=== PATIENT | female | born 1950 | race Caucasian/White ===

== ENCOUNTER → 2020-04-29 14:37 | Outpatient (BNVA) | payer OTHER, SELFPAY | PROVIDERS: Family Provider Family Medicine; Referring Provider Dermatology; Visit Provider Dermatology | DX: L65.8 Other specified nonscarring hair loss (principal); Q82.8 Other specified congenital malformations of skin; L65.9 Nonscarring hair loss, unspecified | CPT/HCPCS: 17110; 99203 ==

== ENCOUNTER → 2020-04-30 17:00 | Outpatient (BNVA) | payer OTHER, SELFPAY | PROVIDERS: Family Provider Family Medicine; PCP Family Medicine; Referring Provider Dermatology; Visit Provider Dermatology | DX: L65.9 Nonscarring hair loss, unspecified (principal) | CPT/HCPCS: 36415; 84439; 84443 ==

== ENCOUNTER 2020-07-13 15:47 | Outpatient (CLI) | payer OTHER, SELFPAY ==
--- NOTE | 2020-07-13 15:53 | XR_ITS ---
WS: [id number] SCREENING DEXA SCAN [employer] CLINICAL INFORMATION: POST MENOPAUSAL COMPARISON: None. FINDINGS: The L1-L4 bone mineral density measures 1.342 g/cm2. This corresponds to a T score score of 1.4 and Z score of 1.9. Left femoral neck bone mineral density measures 0.877 g/cm2. This corresponds to a T score of -1.0 an d Z score of -0.3. Right femoral neck bone mineral density measures 0.874 g/cm2. This corresponds to a T score -1.1of an d Z score of -0.3. Mean femoral neck bone mineral density measures 0.876 g/cm2. This corresponds to a T score of -1.0 an d Z score of -0.3. XR/XR DEXA axial skeleton* [id number] IMPRESSION: Osteopenia in the femoral necks. Normal bone mineralization in the lumbar spine . Patient's FRAX calculated 10 year probability for major osteoporotic fracture i s 8.0 % and osteoporotic hip fracture is 0.8%.
== END 2020-07-13 15:48 | disposition home or self-care (01) ==
LOC: RADWPI 15:52
PROVIDERS: PCP Family Medicine; Visit Provider Family Medicine
DX: Z78.0 Asymptomatic menopausal state (principal); M85.88 Other specified disorders of bone density and structure, other site
CPT/HCPCS: 77080

== ENCOUNTER → 2020-07-21 16:28 | Outpatient (BNVA) | payer OTHER, SELFPAY | PROVIDERS: PCP Family Medicine; Visit Provider Surgery | DX: Z20.828 Contact with and (suspected) exposure to other viral communicable diseases (principal) | CPT/HCPCS: 87635 ==

== ENCOUNTER 2020-07-26 06:58 | Day surgery (SDC) | payer OTHER, SELFPAY ==
[2020-07-22 13:48] VITALS: BMI 33.4
[2020-07-26 07:14] VITALS: BP 168/106; PULSE 71; RESP 18; TEMP 36.4; O2SAT 97
--- NOTE | 2020-07-26 07:25 | W.PM.OPSUD ---
Surgery/Procedure H&P Update DATE OF PROCEDURE: July 26, 2020 DATE H&P PERFORMED: 07/19/20 H&P UPDATE INFORMATION: I have reviewed H&P completed within last 30 days, I have examined patient prior to procedure and No changes to prior documentation PLANNED PROCEDURE: Operation Date: 07/26/20 08:00 Proposed Procedures p EGD [id number] D64.9(Not Applicable) - Jered Braswell MD s Colonoscopy(Not Applicable) - Jered Braswell MD
[2020-07-26] MEDS: sodium chloride 0.9% 1,000 ML 100 ML IV (07:30)
[2020-07-26 07:33] LABS: Glucose Point of Care 95 mg/dL (70-110)
--- NOTE | 2020-07-26 07:52 | ECG_ITS ---
[facility] Test Date: 2020-07-26 Pat Name: Padmini David Department: Room: Gender: Female [employer] Pre[employer]er: : 1950 Requested By: Yuri Shell Order Number: [id number] Keon MD: YOLANDA DRAKE Measurements Intervals [place] Rate: 66 P: NH: QRS: -28 QRSD: 97 T: -5 QT: 367 QTc: 387 Interpretive Statements ATRIAL FIBRILLATION POSSIBLE ANTERIOR MYOCARDIAL INFARCTION [30 ms Q WAVE IN V3/V4, OR R < 0.2 mV IN V4], PROBABLY OLD ABNORMAL RHYTHM ECG Compared to ECG 07/21/2015 11:39:45 Sinus rhythm no longer present Left-axis deviation no longer present Myocardial infarct finding still present Electronically Signed On 07-26-2020 18:38:49 EDUCATIONAL ADVISOR by YOLANDA DRAKE [id number]
--- NOTE | 2020-07-26 08:00 | ANES.PREANE2 ---
Pre-Anesthetic Assessment Pre-Anesthetic Assessment: Height/Weight: Height 1.73 m Weight 99.79 kg Temp Pulse Resp BP Pulse Ox 97.5 F L 71 18 168/106 97 07/26/20 07:14 07/26/20 07:14 07/26/20 07:14 07/26/20 07:14 07/26/20 07:14 Proposed Procedure: Operation Date: 07/26/20 08:00 Proposed Procedures p EGD [id number] D64.9(Not Applicable) - Jered Braswell MD s Colonoscopy(Not Applicable) - Jered Braswell MD Was Beta Phuong taken within 24 hours: Yes Last intake: Intake Last Liquid Date 07/25/20 Last Liquid Time 20:00 Last Solid Date 07/24/20 Social: Social History: No alcohol and No tobacco Exam: Pre-Anes Outpt Exam: alert, oriented x 3, clear to auscultation bilaterally and regular rate & rhythm Airway: Submandibular: WNL Cervical ROM: WNL MP: 2 Dentition: Full History/ROS: No significant history except as noted and No significant complaints Pulmonary: Pulmonary: None reported CV/HEM: CV/HEM: Afib and HTN : : None reported Hepatic: Hepatic: None reported GI: GI: None reported Neuropsych: Neuropsych: CVA Anesthetic Plan: Anesthesia: MAC Risk of > 500 ml blood loss (7ml/kg in children): No Meds/Allergies Current Medications: Current Medications Generic Name Dose Route Start Last Admin Trade Name Freq PRN Reason Stop Dose Admin Sodium Chloride 1,000 mls @ 100 m ls/hr 07/26/20 07:30 07/26/20 07:30 Sodium Chloride 0.9% IV 07/27/20 07:29 100 mls/hr .Q10H MAKSIM Administration PFSH Anesthesia PFSH: Medical History Diabetes Hypertension Stroke Surgical History History of appendectomy History of back surgery History of right knee joint replacement History of tonsillectomy and adenoidectomy S/P IVC filter and removal Family History Father Diabetes Mother Hypertension Stroke Denies family history of CAD (coronary artery disease) Anesthesia complication Bleeding disorder Cancer Social History Smoking and tobacco status: never smoked Alcohol intake: never Household members: spouse Marital status: Current occupational status: employed History of recent travel: No Data Anesthesia Other Labs: Laboratory Results - last 48 hr 07/26/20 07:30 POC Glucose 95 Cardiac Studies: No Data to Display
[2020-07-26 09:08] VITALS: BP 158/106; PULSE 75; RESP 18; TEMP 36.5; O2SAT 97
--- NOTE | 2020-07-26 15:47 | ANE.PACU2 ---
Inpatient post-anesthesia follow up: Airway intact: Yes Vital signs: Temperature 97.7 F Pulse Rate 75 Respiratory Rate 18 Blood Pressure 158/106 Pulse Oximetry 97 Oxygen Delivery Me thod Room Air Oxygen Flow Rate Fraction of Inspir ed Oxygen Hydration adequate: Yes Nausea and vomiting: No Pain level: 2 Mental status: Baseline
== END 2020-07-26 09:39 | disposition home or self-care (01) ==
PROVIDERS: PCP Family Medicine; Visit Provider Surgery
PROC: 0DJ08ZZ Inspection of Upper Intestinal Tract, Via Natural or Artificial Opening Endoscopic (ICD-10-PCS; CPT 43235; principal; 2020-07-26 08:00)
PROC: 0DJD8ZZ Inspection of Lower Intestinal Tract, Via Natural or Artificial Opening Endoscopic (ICD-10-PCS; CPT 45378; 2020-07-26 08:00)
DX: K92.1 Melena (principal); D50.9 Iron deficiency anemia, unspecified; E11.9 Type 2 diabetes mellitus without complications; Z79.84 Long term (current) use of oral hypoglycemic drugs; I10 Essential (primary) hypertension; Z86.73 Personal history of transient ischemic attack (TIA), and cerebral infarction without residual deficits; Z82.49 Family history of ischemic heart disease and other diseases of the circulatory system; Z83.3 Family history of diabetes mellitus; Z82.3 Family history of stroke; Z79.01 Long term (current) use of anticoagulants; K29.70 Gastritis, unspecified, without bleeding; D12.4 Benign neoplasm of descending colon; D12.5 Benign neoplasm of sigmoid colon; I48.91 Unspecified atrial fibrillation
CPT/HCPCS: 12345; 36416; 43235; 45380; 45385; 82962; 88305; 93005; J2704; J7030

== ENCOUNTER 2020-08-11 11:33 | Outpatient (CLI) | payer OTHER, SELFPAY ==
--- NOTE | 2020-08-11 11:40 | MM_ITS ---
WS: [id number] SCREENING DIGITAL MAMMOGRAM WITH CAD HISTORY: SCREENING COMPARISON: 06/02/2019 Bilateral CC and MLO views submitted. Computer aided detection analyzed. Breast composition: There are scattered areas of fibroglandular density. No suspicious masses, microc alcifications or architectural distortion. MM/[id number] IMPRESSION: BI-RADS: 1-Negative FOLLOW UP: 1 Year Follow-up
== END 2020-08-11 11:34 | disposition home or self-care (01) ==
LOC: RADSHAW 11:37
PROVIDERS: PCP Family Medicine; Visit Provider Family Medicine
DX: Z12.31 Encounter for screening mammogram for malignant neoplasm of breast (principal)
CPT/HCPCS: 77067

== ENCOUNTER 2020-09-21 15:21 | Outpatient (CLI) | payer OTHER, SELFPAY ==
--- NOTE | 2020-09-21 15:26 | USCV_ITS ---
Padmini David Age: 70 Gender: F : 1950 Exam Date: 09/21/2020 15:54 Ordering Phys: Laura Graf Technologist: Johanny Ace [place] [facility] [place] Indication: NEW ONSET OF ABFIB BP: 136 / 93 HR: 77 Rhythm: Sinus Technical Quality: Adequate MEASUREMENTS (Male / Female) Normal Values 2D ECHO LV Diastolic Diameter PLAX 4.8 cm 4.2 - 5.9 / 3.9 - 5.3 cm LV Systolic Diameter PLAX 3.3 cm LV Chamber Size 4.4 cm IVS Diastolic Thickness 1.1 cm 0.6 - 1.0 / 0.6 - 0.9 cm IVS Systolic Thickness 1.5 cm LVPW Diastolic Thickness 1.6 cm 0.6 - 1.0 / 0.6 - 0.9 cm LVPW Systolic Thickness 1.6 cm RV Chamber Size 2.8 cm LVOT Diameter 2.0 cm LV Ejection Fraction 2D Teich 57.5 % LV Ejection Fraction MOD 2C 0.7 % LV Ejection Fraction 2C AL 7.7 % LA Diameter 4.4 cm LA Width 3.3 cm LA Height 5.3 cm RA Width 5.2 cm RA Height 5.1 cm Aorta at Sinotubular Diameter 3.3 cm M-MODE LV Diastolic Diameter MM 5.7 cm 4.2 - 5.9 / 3.9 - 5.3 cm LV Systolic Diameter MM 3.6 cm LV Ejection Fraction MM Teich 66.6 % IVS Diastolic Thickness MM 1.0 cm 0.6 - 1.0 / 0.6 - 0.9 cm IVS Systolic Thickness MM 1.4 cm LVPW Diastolic Thickness MM 1.0 cm 0.6 - 1.0 / 0.6 - 0.9 cm LVPW Systolic Thickness MM 1.8 cm RV Diastolic Diameter MM 1.6 cm Aortic Annulus Diameter 3.5 cm LA Ao Ratio MM 1.3 MV E Point Septal Separation 1.1 cm DOPPLER AV Peak Velocity 116.3 cm/s LVOT Peak Velocity 66.5 cm/s AV Area Cont Eq vti 2.0 cm squared AV Area Cont Eq pk 1.8 cm squared MV Area PHT 4.1 cm squared MV E' Velocity 64.0 cm/s Mitral E to MV E' Ratio 9.9 Mitral E to LV E' Lateral Ratio 9.1 Mitral E to LV E' Septal Ratio 11.0 TR Peak Velocity 205.9 cm/s TR Peak Gradient 17.0 mmHg TR Mean Velocity 149.1 cm/s TR Mean Gradient 10.2 mmHg TR Velocity Time Integral 55.7 cm TV Peak E Velocity 58.0 cm/s Right Atrial Pressure 3.0 mmHg Pulmonary Artery Systolic Pressu 20.0 mmHg PV Peak Velocity 59.0 cm/s RV Acceleration Time 0.1 s RV Ejection Time 0.3 s RV AcT/ET 0.4 FINDINGS Left Ventricle Normal left ventricular size with a borderline low EF of 50 to 55%. Mild diffuse hypokinesia of the septum Right Ventricle The right ventricle is normal in size and function. Right Atrium Mildly increased right atrial size. Left Atrium Mildly increased left atrial size. Mitral Valve Mild mitral annular calcification. Trace mitral valve regurgitation. Aortic Valve No gross abnormalities noted Tricuspid Valve Trace tricuspid valve regurgitation. Pulmonic Valve No gross abnormalities noted Pericardium No pericardial effusion. Aorta Normal ascending aorta dimension. CONCLUSIONS Normal left ventricular size with a borderline low EF of 50 to 55%. Mild diffuse hypokinesia of the septum. Mild biatrial enlargement. Mild mitral annular calcification. Trace mitral valve regurgitation. Trace tricuspid valve regurgitation. There is no pericardial effusion. There are no intracardiac masses. No previous study is available for comparison. Dr Jyoti Rod MD [facility] (Electronically Signed) Final Date: 21 September 2020 21:09 S
== END 2020-09-21 15:22 | disposition home or self-care (01) ==
LOC: US 15:24
PROVIDERS: PCP Family Medicine; Visit Provider Physician Assistant
DX: I48.91 Unspecified atrial fibrillation (principal); I08.1 Rheumatic disorders of both mitral and tricuspid valves
CPT/HCPCS: 93306

== ENCOUNTER 2021-08-24 10:49 | Outpatient (CLI) | payer OTHER, SELFPAY ==
--- NOTE | 2021-08-24 10:55 | MM_ITS ---
WS: [id number] BILATERAL SCREENING DIGITAL MAMMOGRAM WITH CAD HISTORY: SCREENING COMPARISON: 08/11/2020 and 06/02/2019 Bilateral CC and MLO views submitted. Computer aided detection analyzed. Breast composition: There are scattered areas of fibroglandular density. No suspicious masses, microc alcifications or architectural distortion. Benign calcifications in each breast. MM/[id number] IMPRESSION: BI-RADS: 2-Benign FOLLOW UP: 1 Year Follow-up
== END 2021-08-24 10:50 | disposition home or self-care (01) ==
LOC: RADSHAW 10:53
PROVIDERS: PCP Family Medicine; Visit Provider Family Medicine
DX: Z12.31 Encounter for screening mammogram for malignant neoplasm of breast (principal)
CPT/HCPCS: 77067

== ENCOUNTER 2022-09-19 11:12 | Outpatient (CLI) | payer MEDICARE, SELFPAY ==
--- NOTE | 2022-09-19 11:29 | XR_ITS ---
WS: [id number] DEXA (DUAL ENERGY X-RAY ABSORPTIOMETRY) Bone mineral density was performed using a [employer] machine. HISTORY: POSTMENOPAUSAL COMPARISON: 07/13/2020 Lumbar spine BMD (L1-L4): 1.357 g/cm2 T score: 1.5 Z score: 2.0 Total hip BMD: Left: 0.860 g/cm2. T score: -1.2 Z score: -0.3 Right: 0.823 g/cm2. T score: -1.5 Z score: -0.6 10 year probability of a major osteoporotic fracture is 8.5%. Compared to the prior study from 07/13/2020. Lumbar spine bone mineral density has increased by 1.1%. Bilateral hips bone mineral density has decreased by 4.0%. XR/XR DEXA axial skeleton* [id number] IMPRESSION: OSTEOPENIA based upon the WHO classification for females. Significant decrease in bone mineral density within the hips since the prior study.
== END 2022-09-19 11:13 | disposition home or self-care (01) ==
LOC: RAD 11:17
PROVIDERS: PCP Family Medicine; Visit Provider Family Medicine
DX: Z78.0 Asymptomatic menopausal state (principal); M85.80 Other specified disorders of bone density and structure, unspecified site
CPT/HCPCS: 77080

== ENCOUNTER 2022-10-23 09:19 | Outpatient (CLI) | payer MEDICARE, SELFPAY ==
--- NOTE | 2022-10-23 09:34 | MM_ITS ---
WS: [id number] BILATERAL SCREENING DIGITAL TOMOSYNTHESIS MAMMOGRAM WITH CAD HISTORY: SCREENING COMPARISON: 08/24/2021, 08/11/2020 Bilateral CC and MLO views with tomosynthesis and synthetic mammography submitted. Computer aided det ection analyzed. Breast composition: There are scattered areas of fibroglandular density. No suspicious masses, microc alcifications or architectural distortion. Benign calcifications. MM/[id number] IMPRESSION: BI-RADS: 2-Benign FOLLOW UP: 1 Year Follow-up
== END 2022-10-23 09:20 | disposition home or self-care (01) ==
LOC: RAD 09:24
PROVIDERS: PCP Family Medicine; Visit Provider Family Medicine
DX: Z12.31 Encounter for screening mammogram for malignant neoplasm of breast (principal)
CPT/HCPCS: 77063; 77067

== ENCOUNTER 2024-01-07 13:45 | Outpatient (CLI) | payer MEDICARE, SELFPAY ==
--- NOTE | 2024-01-07 13:50 | MM_ITS ---
WS: [id number] BILATERAL 3D TOMOSYNTHESIS DIGITAL SCREENING MAMMOGRAPHY WITH CAD CLINICAL INFORMATION: SCREENING HISTORY: Screening mammogram. No current complaints. COMPARISON: 2022 TECHNIQUE: Bilateral CC and MLO views. FINDINGS: Scattered fibroglandular densities bilaterally. No suspicious focal mass, asymmetry, calcifications, or architectural distortion. No evidence of malignancy. Incidental punctate and lucent centered calci fications. MM/[id number] IMPRESSION: BI-RADS: 2-Benign FOLLOW UP: 1 Year Follow-up Recommend return to annual screening mammography.
== END 2024-01-07 13:46 | disposition home or self-care (01) ==
LOC: RAD 13:45
PROVIDERS: PCP Family Medicine; Visit Provider Family Medicine
DX: Z12.31 Encounter for screening mammogram for malignant neoplasm of breast (principal)
CPT/HCPCS: 77063; 77067

== ENCOUNTER 2025-01-30 10:18 | Outpatient (CLI) | payer MEDICARE, SELFPAY ==
--- NOTE | 2025-01-30 10:23 | MM_ITS ---
WS: [id number] BILATERAL 3D TOMOSYNTHESIS DIGITAL SCREENING MAMMOGRAPHY WITH CAD CLINICAL INFORMATION: SCREENING HISTORY: Screening mammogram. No current complaints. COMPARISON: 2023 TECHNIQUE: Bilateral CC and MLO views. FINDINGS: Scattered fibroglandular densities bilaterally. No suspicious focal mass, asymmetry, calcifications, or architectural distortion. No evidence of malignancy. Incidental punctate and lucent centered calcifications Vascular calcifications. MM/MM scr tomosynthesis [id number] IMPRESSION: DENSITY: There are scattered areas of fibroglandular density. BI-RADS: 2 - Benign. FOLLOW UP: 1 Year Follow-up Recommend return to annual screening mammography.
== END 2025-01-30 10:19 | disposition home or self-care (01) ==
PROVIDERS: PCP Family Medicine; Visit Provider Family Medicine
DX: Z12.31 Encounter for screening mammogram for malignant neoplasm of breast (principal); R92.323 Mammographic fibroglandular density, bilateral breasts; R92.1 Mammographic calcification found on diagnostic imaging of breast
CPT/HCPCS: 77063; 77067